=== PATIENT | male | born 1975 | race Caucasian/White ===

== ENCOUNTER 2019-08-23 09:23 | Emergency (ER) | payer OTHER ==
[~2019-08-23] VITALS: Ht 188 cm; Wt 93.0 kg
[~2019-08-23 09:23] MED LIST: NOHOMEMEDICATIONS; PHENERGAN25 M2 RC
[2019-08-23] MEDS ORDERED: FLEXERIL PO (10:47)
[2019-08-23] MEDS ORDERED: IBUPROFEN 800800 MG PO (10:47)
[2019-08-23 10:56] VITALS: BP 133/88
== END 2019-08-23 10:57 | disposition home or self-care (01) ==
LOC: M.ERS 09:23
DX: S39.012A Strain of muscle, fascia and tendon of lower back, initial encounter (principal); F17.210 Nicotine dependence, cigarettes, uncomplicated; V49.49XA Driver injured in collision with other motor vehicles in traffic accident, initial encounter; Y93.89 Activity, other specified; Y92.89 Other specified places as the place of occurrence of the external cause; Y99.8 Other external cause status

== ENCOUNTER 2019-09-08 06:24 | Emergency (ER) | payer OTHER ==
[~2019-09-08] VITALS: Ht 188 cm; Wt 97.5 kg
[~2019-09-08 06:24] MED LIST changes: +FLEXERIL PO; +IBUPROFEN 800800 MG PO
[2019-09-08] MEDS ORDERED: ASA81BEC PO (06:33)
[2019-09-08 08:29] VITALS: BP 142/93
== END 2019-09-08 08:21 | disposition home or self-care (01) ==
LOC: M.ERS 06:24
DX: F07.81 Postconcussional syndrome (principal)